=== PATIENT | female | born 1940 | race Caucasian/White ===

== ENCOUNTER 2016-08-14 08:59 | Outpatient (CLI) | payer MEDICARE | END 2016-08-14 09:00 | disposition home or self-care (01) | DX: I10 Essential (primary) hypertension (principal); R73.01 Impaired fasting glucose; E03.9 Hypothyroidism, unspecified ==

== ENCOUNTER 2016-08-30 10:45 | Outpatient (CLI) | payer MEDICARE | END 2016-08-30 10:46 | disposition home or self-care (01) | DX: Z12.31 Encounter for screening mammogram for malignant neoplasm of breast (principal) ==

== ENCOUNTER 2016-11-08 09:20 | Outpatient (CLI) | payer MEDICARE ==
--- NOTE | 2016-11-08 14:15 | MRI Report ---
EXAM: RIGHT KNEE MRI WITHOUT CONTRAST EXAM DATE: 11/08/2016 10:49 AM. CLINICAL HISTORY: SPRAIN/STRAIN, KNEE/LEG. COMPARISON: None. TECHNIQUE: Multiplanar, multisequence T1-weighted and fluid-sensitive sequences of the knee without c ontrast. Other: None. FINDINGS: Bones: No fractures or subluxations. Osteoarthritis with small osteophytes in the femoral condyles an d the lateral tibial plateau. Mild juxtaarticular reactive marrow edema in the lateral femoral condyl e and the lateral tibial plateau. No bone lesions. Articular Cartilage: Grade 3 cartilaginous degeneration with thinning and irregular surface in the la teral femoral condyle and the lateral tibial plateau associated with joint space narrowing. Medial Meniscus: The medial meniscus is intact. Lateral Meniscus: An extensive horizontal tear in the lateral meniscus involving the anterior horn, b ross and most of the posterior horn. Cruciate Ligaments: The anterior and posterior cruciate ligaments are intact. Collateral Ligaments: The medial collateral and lateral collateral ligamentous structures are intact. Tendons: The quadriceps, patellar, semimembranosus, and popliteus tendons are unremarkable. Musculature: Mild muscular strain with mild edema into distal part of the vastus lateralis. Mild musc ular fatty atrophy. Other: Mild effusion. No popliteal cyst. No loose bodies. The medial and lateral retinacula, patello femoral ligaments and iliotibial band are intact. No bursitis. The subcutaneous tissues and fat pads are unremarkable. IMPRESSION: 1. An extensive horizontal tear in the lateral meniscus involving the anterior horn, body and most of the posterior horn. 2. Grade 3 cartilaginous degeneration with thinning and irregular surface in the lateral femoral cond yle and the lateral tibial plateau associated with joint space narrowing associated with mild juxtaar ticular reactive marrow edema. 3. Mild muscular strain with mild edema into distal part of the vastus lateralis. 4. Mild effusion. No hemarthrosis or loose body. [facility] MUSCULOSKELET[facility] SECTION Referring Provider Line: [phone] SITE ID: [id number]
== END 2016-11-08 09:21 | disposition home or self-care (01) ==
LOC: DI 09:20
PROVIDERS: ATTEND Family Medicine
DX: S83.281A Other tear of lateral meniscus, current injury, right knee, initial encounter (principal); M23.91 Unspecified internal derangement of right knee; M25.461 Effusion, right knee; S86.811A Strain of other muscle(s) and tendon(s) at lower leg level, right leg, initial encounter

== ENCOUNTER 2017-09-05 09:00 | Outpatient (CLI) | payer MEDICARE ==
--- NOTE | 2017-09-06 17:46 | Mammography Report ---
DIGITAL SCREENING MAMMOGRAM: 09/05/2017 CLINICAL INDICATION: A 77-year-old for screening. TECHNIQUE: Routine CC and MLO projections were obtained of the breasts. COMPARISON: 08/2016, 08/2015, 09/2013, 08/2012, 07/2011, 06/2010, 06/2009. FINDINGS: The breasts demonstrate scattered fibroglandular densities bilaterally. No suspicious masses, clustered microcalcifications, or regions of architectural distortion are identified. IMPRESSION: NEGATIVE EXAMINATION. RECOMMENDATION: Routine annual screening unless otherwise clinically indicated. BIRADS category 1-negative. STANDARD QUALIFYING STATEMENTS 1. This examination was reviewed with the aid of Computed-Aided Detection (CAD). 2. A negative or benign imaging report should not delay biopsy if clinically suspicious findings are present. Consider surgical consultation if warranted. More than 5% of cancers are not identified by imaging. 3. Dense breasts may obscure an underlying neoplasm. cc: DANNY DUCKWORTH TD: 09/06/2017 12:58 cc: DANNY DUCKWORTH
== END 2017-09-05 09:01 | disposition home or self-care (01) ==
LOC: DI.N 09:00
PROVIDERS: ATTEND Family Medicine
DX: Z12.31 Encounter for screening mammogram for malignant neoplasm of breast (principal)
CPT/HCPCS: 77067

== ENCOUNTER 2017-12-30 08:00 | Outpatient (CLI) | payer MEDICARE ==
[2017-12-30 19:04] LABS: BASOPHILS % (AUTO) 0.7 %; EOSINOPHILS # (AUTO) 0.1 10^3/uL (0.0-0.7); EOSINOPHILS % (AUTO) 2.1 %; HGB - HEMOGLOBIN 14.1 g/dL (12.0-16.0); LYMPHOCYTES # (AUTO) 1.2 10^3/uL (1.5-3.5); LYMPHOCYTES % (AUTO) 16.2 %; MEAN CORPUSCULAR HEMOGLOBIN 31.7 pg (27.0-31.0); MEAN CORPUSCULAR HGB CONC 32.9 g/dL (32.0-36.0); MEAN CORPUSCULAR VOLUME 96.5 fL (81.0-99.0); MEAN PLATELET VOLUME 8.4 fL (7.9-10.8); MONOCYTES # (AUTO) 0.4 10^3/uL (0.0-1.0); MONOCYTES % (AUTO) 5.2 %; NEUTROPHILS # (AUTO) 5.5 10^3/uL (1.5-6.6); NEUTROPHILS % (AUTO) 75.8 %; PLT - PLATELET COUNT 250 10^3/uL (130-450); RED BLOOD COUNT 4.43 10^6/uL (4.20-5.40); RED CELL DISTRIBUTION WIDTH 13.6 % (12.0-15.0); WHITE BLOOD COUNT 7.3 x10^3/uL (4.8-10.8)
[2017-12-30 19:27] LABS: ALBUMIN 4.1 g/dL (3.2-5.5); ALBUMIN/GLOBULIN RATIO 1.4 (1.0-2.2); ALKALINE PHOSPHATASE 113 IU/L (42-121); ALT ALANINE AMINOTRANSFERASE 13 IU/L (10-60); AST ASPARTATE AMINOTRANSFERASE 21 IU/L (10-42); BILIRUBIN,TOTAL 0.3 mg/dL (0.2-1.0); BUN - BLOOD UREA NITROGEN 10 mg/dL (6-20); CALCIUM 10.1 mg/dL (8.5-10.3); CARBON DIOXIDE - CO2 30 mmol/L (21-32); CHLORIDE 105 mmol/L (101-111); CHOL/HDL RATIO 2.5 (<4.4); CHOLESTEROL 159 mg/dL; CREATININE 0.7 mg/dL (0.4-1.0); GFR - MDRD 81 (>89); GLUCOSE 88 mg/dL (70-100); HDL CHOLESTEROL 64 mg/dL; LDL CHOLESTEROL,CALCULATED 79 mg/dL; LDL/HDL RATIO 1.2 (<4.4); SODIUM 141 mmol/L (135-145); VLDL CHOLESTEROL 16 mg/dL
[2017-12-30 20:31] LABS: HB2 TOTAL 14.7 g/dL; HEMOGLOBIN A1C 0.57 g/dL; HEMOGLOBIN A1C % 5.7 % (4.6-6.2)
== END 2017-12-30 08:01 | disposition home or self-care (01) ==
LOC: LAB.WCP 08:00
PROVIDERS: ATTEND Family Medicine
DX: I10 Essential (primary) hypertension (principal); R73.01 Impaired fasting glucose; E03.9 Hypothyroidism, unspecified
CPT/HCPCS: 36415; 80053; 80061; 83036; 83721; 84443; 85025

== ENCOUNTER 2018-04-21 08:00 | Outpatient (CLI) | payer MEDICARE | END 2018-04-21 23:59 | disposition home or self-care (01) | LOC: LAB.WCP 08:00 | PROVIDERS: ATTEND Orthopaedic Surgery | DX: Z01.812 Encounter for preprocedural laboratory examination (principal); M17.11 Unilateral primary osteoarthritis, right knee | CPT/HCPCS: 36415; 86850; 86900; 86901 ==

== ENCOUNTER 2018-04-22 05:53 | Inpatient (IN) | payer MEDICARE ==
[2018-04-22] MEDS ORDERED: ceFAZolin 2 GM/50 ML 2 GM/50 ML BAG IV ONE (06:26)
[2018-04-22] MEDS ORDERED: LACTATED RINGERS 1,000 ML IV ONE ×2 (07:00→10:00)
--- NOTE | 2018-04-22 07:03 | ANESTHESIA ---
Pre-Anesthesia VS, & Labs - Diagnosis right knee osteoarthritis - Procedure right knee arthroplasty Vital Signs: Temp Pulse Resp BP Pulse Ox 36.8 C 84 18 159/85 H 96 04/22/18 06:30 04/22/18 06:30 04/22/18 06:30 04/22/18 06:30 04/22/18 06:30 Height 5 ft 1 in Weight (kg) 86.4 kg - NPO >8 hours - Is Patient ?: No Home Medications and Allergies Home Medications: Ambulatory Orders Acetaminophen/Cod 300/30 [Tylenol #3] 1 each PO .Q6-8HR 04/17/18 Celecoxib [Celebrex] 200 mg PO DAILY 04/17/18 Ca/D3/Mag#11/Zinc/Beam Sealer/Bill/Bor [Caltrate 600+D Plus Tablet] 1 tab PO DAILY Docusate Sodium [Stool Softener] 1 tab PO DAILY 09/19/15 Levothyroxine [Synthroid] 100 mcg PO DAILY 09/19/15 Lisinopril [Prinivil] 20 mg PO DAILY 09/19/15 Omeprazole [PriLOSEC] 20 mg PO DAILY 09/19/15 Acetaminophen/Cod 300/30 [Tylenol #3] 1 each PO .Q6-8HR 04/17/18 Celecoxib [Celebrex] 200 mg PO DAILY 04/17/18 Allergies/Adverse Reactions: Allergies Allergy/AdvReac Type Severity Reaction Status Date / Time No Known Drug Allergies Allergy Verified 04/17/18 14:36 Anes History & Medical History - Anesthetic History Anesthesia Complications: reports: No previous complications - Medical History Cardiovascular: reports: Hypertension Pulmonary: reports: None Gastrointestinal: reports: GERD (controlled with medication), Ulcers Urinary: reports: None Musculoskeletal: reports: Osteoarthritis, Chronic back pain Endocrine/Autoimmune: reports: HyPOthyroidism Skin: reports: None - Surgical History General: Colonoscopy, EGD Eyes Ears Nose Throat (EENT): Tonsil/Adenoidectomy Gynecologic: Tubal ligation, Hysterectomy Exam General: Alert, Oriented x3, Cooperative, No acute distress Dental: WNL Mouth Openin Fingerbreadth Neck Mobility: Normal Mallampati classification: II Thyromental Distance: 4-6 cm Respiratory: Lungs clear, Normal breath sounds, No respiratory distress, No accessory muscle use Cardiovascular: Regular rate, Normal S1, Normal S2, No murmurs Mental/Cognitive Status: Alert/Oriented X3, Normal for patient Plan Anesthesia Type: Spinal Consent for Procedure(s) Verified and Reviewed: Yes Code Status: Attempt Resuscitation ASA classification: 2-Mild systemic disease Is this case an emergency?: No
[2018-04-22] MEDS ORDERED: SODIUM CHLORIDE 0.9% 30 ML ONE (07:08)
[2018-04-22] MEDS ORDERED: BUPIVACAINE 0.5% PF 30 ML VIAL ONE (07:08)
[2018-04-22] MEDS ORDERED: EPINEPHrine 1 MG/ML AMP ONE (07:08)
[2018-04-22] MEDS ORDERED: ROPIVACAINE 0.5% PF 20 ML AMPULE ONE (07:08)
[2018-04-22] MEDS ORDERED: MORPHINE PF 5 MG/10 ML AMP SUBQ ONE (08:37)
[2018-04-22] MEDS ORDERED: KETOROLAC 15 MG/ML VIAL IVP ONE (08:37)
[2018-04-22] MEDS ORDERED: BUPIVACAINE 0.5% PF 30 ML VIAL SUBQ ONE ×2 (08:38)
[2018-04-22] MEDS ORDERED: EPINEPHrine 1 MG/ML AMP IVP ONE (08:38)
[2018-04-22] MEDS ORDERED: ROPIVACAINE 0.2% PF 20 ML AMPULE SUBQ ONE (08:39)
[2018-04-22] MEDS ORDERED: PROPOFOL 200 MG/20 ML VIAL IVP ONE (09:37)
[2018-04-22] MEDS ORDERED: fentaNYL 100 MCG/2 ML VIAL IVP ONE (09:37)
[2018-04-22] MEDS ORDERED: ePHEDrine 50 MG/ML AMP IVP ONE (09:37)
[2018-04-22] MEDS ORDERED: ONDANSETRON 4 MG/2 ML VIAL IVP ONE (09:37)
[2018-04-22] MEDS ORDERED: ONDANSETRON 4 MG/2 ML VIAL IVP PRN (09:50)
[2018-04-22] MEDS ORDERED: SODIUM CHLORIDE FLUSH 0.9% 10 ML SYRINGE IVP PRN (09:50)
[2018-04-22] MEDS ORDERED: PROCHLORPERAZINE 10 MG/2 ML VIAL IVP PRN (09:50)
[2018-04-22] MEDS ORDERED: ACETAMINOPHEN 325 MG TABLET PO PRN (09:50)
[2018-04-22] MEDS ORDERED: ACETAMINOPHEN 1,000 MG/100 ML 100 ML IV PRN (09:50)
[2018-04-22] MEDS ORDERED: HYDROmorphone 0.5 MG/0.5 ML SYRINGE IVP PRN (09:50)
[2018-04-22] MEDS: fentaNYL 100 MCG/2 ML VIAL ONE ×4 (09:54→10:16)
--- NOTE | 2018-04-22 09:59 | OPERATIVE REPORT ---
Operative Report - General Admit Date: 04/22/18 Procedure Date: 04/22/18 Planned Procedure: right total knee arthroplasty Pre-Op Diagnosis: DJD right knee Procedure Performed: right total knee arthroplasty Post Op Diagnosis: same - Procedure Note Primary Surgeon: pamela Anesthesia Provider: fausto Anesthesia Technique: Combo spinal/epidural Estimated Blood Loss (mL): 20
[2018-04-22] MEDS: HYDROmorphone 1 MG/ML CARPUJECT ONE ×2 (10:10→10:15)
--- NOTE | 2018-04-22 10:35 | XRAY Report ---
Reason: post op Procedure Date: 04/22/2018 Accession Number: [id number] / [id number] Procedure: XR - Knee 2 View RT CPT Code: FULL RESULT: EXAM: RIGHT KNEE RADIOGRAPHY EXAM DATE: 04/22/2018 10:24 AM. CLINICAL HISTORY: Postop. COMPARISON: None. TECHNIQUE: 2 views. FINDINGS: Bones and Joints: No fractures or bone lesion. A 3 component right knee arthroplasty has been performed. There is expected alignment of components. No unexpected periprosthetic lucency or other evidence of loosening. Soft Tissues: No knee effusion. No soft tissue swelling. IMPRESSION: Expected appearance of knee arthroplasty. [facility]
[2018-04-22] MEDS: HYDROcod/ACETAM 5/325 MG TABLET PO PRN ×3 (11:18→22:21)
[2018-04-22] MEDS: POLYETHYLENE GLYCOL 3350 17 GM PACKET PO SCH (11:19)
[2018-04-22] MEDS: SODIUM CHLORIDE 0.45% 1,000 ML IV SCH ×2 (11:20→22:31)
--- NOTE | 2018-04-22 15:17 | OPERATIVE REPORT ---
DATE OF SERVICE: 04/22/2018 Physician: Seth Howell MD PREOPERATIVE DIAGNOSIS: Right knee tricompartmental arthritis. POSTOPERATIVE DIAGNOSIS: OPERATIVE PROCEDURE: Right total knee replacement arthroplasty. OPERATING SURGEON: Seth Howell. ANESTHESIA: General and spinal by Stefano. INDICATIONS FOR SURGERY: Catherine is a 77-year-old female with end-stage arthritis of her right knee, who has failed nonoperative treatment over an extended period of time and has failed to see improvement or satisfactory gains and ultimately now desires total knee arthroplasty. FINDINGS AT SURGERY: The patient's knee was shown to have enlargement and effusion. She had prominent spurring around the periphery of her knee. She had tearing of her lateral meniscus, and the areas devoid of cartilage were her tibial surfaces predominantly, with the patella fairly well preserved. Her bone density soft. DESCRIPTION OF OPERATIVE PROCEDURE: The patient was taken to the operating room and was given a spinal anesthetic and then a deep sedation MAC anesthetic in a supine position, which she tolerated well. A tourniquet was placed on her thigh and her leg, and the entire limb was sterilely prepped and draped in standard fashion. The patient's incision plan was marked with a marking pen. Surgical timeout was held. Tourniquet inflated. Surgical timeout was undertaken, after which the limb was in an extended position. A surgical approach was made, incising through skin and subcutaneous tissue, dissecting down to the fascial layer of the knee with a medial parapatellar incision made and some excision of fat pad made in order to expose the knee joint with ACL excised knee and two horns of the meniscus excised. The knee was able to be flexed. A lateral release was performed of the patella, and, in flexion, a central drill hole made in the femur for placement of the IM foreign and the distal femoral cutting block. These were slid down onto the femur and the distal femoral cut was made, taking an extra +2 cut. Following this, the distal cutting block was applied, sizing the femur and a size 6 was chosen and appropriate 4-in-1 block was applied and those cuts made. The PCL was excised, as well as the posterior remnants of meniscus. Tibia was subluxated forward with the external tibial block applied in appropriate rotation, slope, and depth. The cut was made and the tibial resected surface removed. The tibia sized to a size C-D, and appropriate block was tacked in place and a trial poly insert was obtained. The most appropriate fitting was 13 mm. Following this, it was determined that with soft bone a stemmed implant would be applied, so the central tibial drilling was performed to accommodate the stem and the proximal fin broach was applied, followed by the trial component,and once again, components trialed for size 13 mm was the appropriate medial congruent poly. The knee was extended and the patella cut down from 23 mm to 15 in order to reinsert 8 mm poly, and this was a size 29 mm medialized patellar component, and it tracked well without pump pressure and was central. All trial components were removed and all implanted surfaces were washed thoroughly and dried, and the posterior capsule and resected tissues were infiltrated with a combination injection approximately 30 mL infiltrated through these tissues, and this was done while the components were opened and cement mixed after which sequential cementing was done of the tibial implant, followed by insertion of poly and then cementing the femoral implant and removing excess cement and extending the knee and finally inserting and holding the patella in place as excess cement was removed around it. Once the cement was hardened, the knee was flushed thoroughly, checked for any aberrant cement, and bleeding was controlled with cautery. Closure was undertaken with FiberWire closure of the medial retinaculum which was very meticulous closure with minimal bleeding. The superficial layers were closed with interrupted Vicryl, and finally the skin was closed with Monocryl in a running fashion. A sterile dressing was applied. The patient was then taken to the recovery room in stable condition. ESTIMATED BLOOD LOSS: Minimal, about 40 mL COMPLICATIONS: None. COUNTS: Sponge and needle counts correct. IMPLANTS: Joshua/[employer] Personal TKA, size 6 femoral component, C tibia with 30mm stem extension, size 29mm patella TD: 04/22/2018 14:38 [email or web address]
[2018-04-22] MEDS: ceFAZolin 2 GM/50 ML 2 GM/50 ML BAG IV SCH ×2 (15:27→21:43)
[2018-04-22] MEDS: SODIUM CHLORIDE FLUSH 0.9% 10 ML SYRINGE IVP SCH (16:06)
[2018-04-23] MEDS: SODIUM CHLORIDE FLUSH 0.9% 10 ML SYRINGE IVP SCH ×3 (00:21→15:47)
[2018-04-23] MEDS: HYDROcod/ACETAM 5/325 MG TABLET PO PRN ×4 (04:55→19:43)
[2018-04-23 06:04] LABS: CALCIUM 8.7 mg/dL (8.5-10.3); CREATININE 0.7 mg/dL (0.4-1.0)
[2018-04-23 06:12] LABS: HGB - HEMOGLOBIN 11.1 g/dL (12.0-16.0)
--- NOTE | 2018-04-23 07:56 | PROVIDER PROGRESS NOTE ---
Subjective - General Admit Date: 04/22/18 Procedure Date: 04/22/18 Post Op Days: 1 Procedure Performed: right TKA - Review of Systems Wound/Incisions: positive: Healing well Musculoskeletal: positive: Joint pain, Joint swelling Psychiatric: positive: No symptoms Objective - Patient Data Reviewed Vital Signs: Yes Vital Signs: Vital Signs x48h Temp Pulse Resp BP Pulse Ox 04/23/18 05:05 36.7 C 71 16 135/78 H 96 Weight: Weight 04/21/18 04/22/18 04/23/18 23:59 23:59 23:59 Weight (kg) 86.4 kg Intake & Output: Intake and Output Totals x24h 04/21/18 04/22/18 04/23/18 23:59 23:59 23:59 Intake Total 3020 350 Output Total 695 300 Balance 2325 50 - Lab Results Lab Results: 04/23/18 05:35 04/23/18 05:35 Other Lab Results: Lab Results x24hrs 04/23/18 04/23/18 Range/Units 05:35 05:35 Hgb 11.1 L (12.0-16.0) g/dL Hct 33.4 L (37.0-47.0) % Sodium 136 (135-145) mmol/L Potassium 4.3 (3.5-5.0) mmol/L Chloride 101 (101-111) mmol/L Carbon Dioxide 27 (21-32) mmol/L Anion Gap 8.0 (6-13) BUN 10 (6-20) mg/dL Creatinine 0.7 (0.4-1.0) mg/dL Estimated GFR (MDRD) 81 L (>89) Glucose 123 H (70-100) mg/dL Calcium 8.7 (8.5-10.3) mg/dL - Imaging Results Radiology Imaging: positive: EMP read indepedently - Current Medications Current Medications: Current Medications Generic Name Dose Route Start Last Admin Trade Name Freq PRN Reason Stop Dose Admin Hydrocodone Bitart/Acetaminophen 1 tab 04/22/18 09:50 04/23/18 04:55 [place] 5/325 PO 1 tab Q4HR PRN Administration PAIN Sodium Chloride 1,000 mls @ 100 mls/hr 04/22/18 10:00 04/22/18 22:31 Normal Saline 0.45% IV 100 mls/hr .Q10H ABBY Administration Polyethylene Glycol 17 gm 04/22/18 12:00 04/22/18 11:19 Miralax PO 17 gm DAILY ABBY Administration Sodium Chloride 10 ml 04/22/18 17:00 04/23/18 00:21 Normal Saline Flush 0.9% IVP Not Given 0100,0900,1700 ABBY - Physical Exam Wound/Incisions: positive: Dressing dry and intact General Appearance: positive: Alert Extremities: positive: Joint swelling Neurologic/Psychiatric: positive: Oriented x3, CN's nml (2-12), Motor nml, Sensation nml Impression/Plan - Problem List Problem List: POD #1 pt is advancing but having increased pain today as expected. will follow Hct. PT to begin today. dressing change tomorrow
[2018-04-23] MEDS: DOCUSATE SODIUM 100 MG CAPSULE PO SCH (08:15)
[2018-04-23] MEDS: CELECOXIB 100 MG CAPSULE PO SCH (08:15)
[2018-04-23] MEDS: SENNA 8.6 MG TABLET PO SCH ×3 (08:15→17:01)
[2018-04-23] MEDS: LEVOTHYROXINE 100 MCG TABLET PO SCH (08:16)
[2018-04-23] MEDS: CHOLECALCIFEROL 400 UNIT TABLET PO SCH (08:16)
[2018-04-23] MEDS: POLYETHYLENE GLYCOL 3350 17 GM PACKET PO SCH (08:16)
[2018-04-23] MEDS: LISINOPRIL 20 MG TABLET PO SCH (08:16)
[2018-04-23] MEDS: PANTOPRAZOLE 40 MG TABLET PO SCH (08:16)
[2018-04-23] MEDS: CALCIUM CARB (OYSTER SHELL) 500 MG TABLET PO SCH (08:17)
[2018-04-23] MEDS: ASPIRIN EC 325 MG TABLET PO SCH (10:42)
[2018-04-24] MEDS: SODIUM CHLORIDE FLUSH 0.9% 10 ML SYRINGE IVP SCH ×3 (02:13→20:46)
[2018-04-24] MEDS: SENNA 8.6 MG TABLET PO SCH (02:13)
[2018-04-24] MEDS: HYDROcod/ACETAM 5/325 MG TABLET PO PRN ×4 (04:37→21:25)
[2018-04-24 05:26] LABS: HGB - HEMOGLOBIN 10.3 g/dL (12.0-16.0); MEAN CORPUSCULAR HEMOGLOBIN 32.5 pg (27.0-31.0); MEAN CORPUSCULAR HGB CONC 33.4 g/dL (32.0-36.0); MEAN CORPUSCULAR VOLUME 97.3 fL (81.0-99.0); MEAN PLATELET VOLUME 7.3 fL (7.9-10.8); RED BLOOD COUNT 3.18 10^6/uL (4.20-5.40); RED CELL DISTRIBUTION WIDTH 14.1 % (12.0-15.0); WHITE BLOOD COUNT 6.9 x10^3/uL (4.8-10.8)
--- NOTE | 2018-04-24 08:37 | PROVIDER PROGRESS NOTE ---
Subjective - General Admit Date: 04/22/18 Procedure Date: 04/22/18 Post Op Days: 2 Procedure Performed: right TKA - Review of Systems Wound/Incisions: positive: Healing well General: positive: Weakness Musculoskeletal: positive: Joint pain, Joint swelling Psychiatric: positive: No symptoms Objective - Patient Data Reviewed Vital Signs: Yes Vital Signs: Vital Signs x48h Temp Pulse Resp BP Pulse Ox 04/24/18 07:53 36.5 C 83 20 139/55 H 98 Weight: Weight 04/22/18 04/23/18 04/24/18 23:59 23:59 23:59 Weight (kg) 86.4 kg Intake & Output: Intake and Output Totals x24h 04/22/18 04/23/18 04/24/18 23:59 23:59 23:59 Intake Total 3020 2120 560 Output Total 695 2100 350 Balance 2325 20 210 - Lab Results Lab Results: 04/24/18 05:05 04/23/18 05:35 Other Lab Results: Lab Results x24hrs 04/24/18 Range/Units 05:05 WBC 6.9 (4.8-10.8) x10^3/uL RBC 3.18 L (4.20-5.40) 10^6/uL Hgb 10.3 L (12.0-16.0) g/dL Hct 31.0 L (37.0-47.0) % MCV 97.3 (81.0-99.0) fL MCH 32.5 H (27.0-31.0) pg MCHC 33.4 (32.0-36.0) g/dL RDW 14.1 (12.0-15.0) % Plt Count 207 (130-450) 10^3/uL MPV 7.3 L (7.9-10.8) fL - Current Medications Current Medications: Current Medications Generic Name Dose Route Start Last Admin Trade Name Freq PRN Reason Stop Dose Admin Hydrocodone Bitart/Acetaminophen 1 tab 04/22/18 09:50 04/24/18 04:37 [place] 5/325 PO 1 tab Q4HR PRN Administration PAIN Aspirin 325 mg 04/23/18 10:00 04/23/18 10:42 Ecotrin PO 325 mg DAILY ABBY Administration Calcium Carbonate/Glycine 500 mg 04/23/18 09:00 04/23/18 08:17 [place]ys[place]-500 PO 500 mg DAILY ABBY Administration Celecoxib 200 mg 04/23/18 09:00 04/23/18 08:15 Celebrex PO 200 mg DAILY ABBY Administration Cholecalciferol 200 unit 04/23/18 09:00 04/23/18 08:16 Vitamin D3 PO 200 unit DAILY ABBY Administration Docusate Sodium 100 mg 04/23/18 09:00 04/23/18 08:15 Colace 100mg Capsule PO 100 mg DAILY ABBY Administration Levothyroxine Sodium 100 mcg 04/23/18 09:00 04/23/18 08:16 Synthroid PO 100 mcg DAILY ABBY Administration Lisinopril 20 mg 04/23/18 09:00 04/23/18 08:16 Zestril PO 20 mg DAILY ABBY Administration Pantoprazole Sodium 40 mg 04/23/18 09:00 04/23/18 08:16 Protonix PO 40 mg DAILY ABBY Administration Polyethylene Glycol 17 gm 04/22/18 12:00 04/23/18 08:16 Miralax PO 17 gm DAILY ABBY Administration Sodium Chloride 10 ml 04/22/18 17:00 04/24/18 02:13 Normal Saline Flush 0.9% IVP Not Given 0100,0900,1700 ABBY - Physical Exam Wound/Incisions: positive: Healing well, No drainage General Appearance: positive: No acute distress Skin: positive: No rash, Warm Extremities: positive: Joint swelling Neurologic/Psychiatric: positive: Oriented x3, CN's nml (2-12), Motor nml, Sens ation nml, Mood/affect nml Impression/Plan - Problem List Problem List: POD #2 Pt is slowly progressing with physical therapy. Dressing was changed today. and PT to continue. Poss. plan for d/c to home in AM
[2018-04-24] MEDS: POLYETHYLENE GLYCOL 3350 17 GM PACKET PO SCH (08:40)
[2018-04-24] MEDS: ASPIRIN EC 325 MG TABLET PO SCH (08:41)
[2018-04-24] MEDS: PANTOPRAZOLE 40 MG TABLET PO SCH (08:41)
[2018-04-24] MEDS: DOCUSATE SODIUM 100 MG CAPSULE PO SCH (08:41)
[2018-04-24] MEDS: LISINOPRIL 20 MG TABLET PO SCH (08:41)
[2018-04-24] MEDS: CHOLECALCIFEROL 400 UNIT TABLET PO SCH (08:41)
[2018-04-24] MEDS: LEVOTHYROXINE 100 MCG TABLET PO SCH (08:41)
[2018-04-24] MEDS: CALCIUM CARB (OYSTER SHELL) 500 MG TABLET PO SCH (08:41)
[2018-04-24] MEDS: CELECOXIB 100 MG CAPSULE PO SCH (08:41)
[2018-04-25] MEDS: SODIUM CHLORIDE FLUSH 0.9% 10 ML SYRINGE IVP SCH ×2 (07:30→08:06)
[2018-04-25 07:57] VITALS: BP 146/67
[2018-04-25] MEDS: CHOLECALCIFEROL 400 UNIT TABLET PO SCH (08:06)
[2018-04-25] MEDS: HYDROcod/ACETAM 5/325 MG TABLET PO PRN (08:06)
[2018-04-25] MEDS: LISINOPRIL 20 MG TABLET PO SCH (08:07)
[2018-04-25] MEDS: DOCUSATE SODIUM 100 MG CAPSULE PO SCH (08:07)
[2018-04-25] MEDS: ASPIRIN EC 325 MG TABLET PO SCH (08:07)
[2018-04-25] MEDS: CELECOXIB 100 MG CAPSULE PO SCH (08:07)
[2018-04-25] MEDS: LEVOTHYROXINE 100 MCG TABLET PO SCH (08:07)
[2018-04-25] MEDS: PANTOPRAZOLE 40 MG TABLET PO SCH (08:07)
[2018-04-25] MEDS: CALCIUM CARB (OYSTER SHELL) 500 MG TABLET PO SCH (08:07)
[2018-04-25] MEDS: POLYETHYLENE GLYCOL 3350 17 GM PACKET PO SCH (08:10)
--- NOTE | 2018-04-25 09:39 | Discharge Plan ---
Discharge Plan Disposition: 01 Home, Self Care Condition: Good Diet: Regular Activity Restrictions: pt to do rom of knee, ankle and foot. Shower Restrictions: Yes (cover knee dressing) Driving Restrictions: Yes (no drive) Assistance Devices: Walker Weight Bearing: Full Weight Additional Instructions or Follow Up instructions: dr. Howell in clinic Weds next week. No Smoking: If you smoke, Please STOP! Call for help. Follow-up with: Purnima Warren DO [Primary Care Provider] - Seth Howell MD [Provider Admit Priv/Credential] -
--- NOTE | 2018-04-25 09:42 | PROVIDER PROGRESS NOTE ---
Subjective - General Admit Date: 04/22/18 Procedure Date: 04/22/18 Post Op Days: 3 Procedure Performed: right TKA - Review of Systems Wound/Incisions: positive: Healing well, No drainage Musculoskeletal: positive: Joint pain, Joint swelling Psychiatric: positive: No symptoms Objective - Patient Data Reviewed Vital Signs: Yes Vital Signs: Vital Signs x48h Temp Pulse Resp BP Pulse Ox 04/25/18 07:56 36.5 C 74 20 146/67 H 96 Intake & Output: Intake and Output Totals x24h 04/23/18 04/24/18 04/25/18 23:59 23:59 23:59 Intake Total 2120 1535 390 Output Total 2100 1325 Balance 20 210 390 - Lab Results Lab Results: 04/24/18 05:05 04/23/18 05:35 - Current Medications Current Medications: Current Medications Generic Name Dose Route Start Last Admin Trade Name Freq PRN Reason Stop Dose Admin Hydrocodone Bitart/Acetaminophen 1 tab 04/22/18 09:50 04/25/18 08:06 [place] 5/325 PO 1 tab Q4HR PRN Administration PAIN Aspirin 325 mg 04/23/18 10:00 04/25/18 08:07 Ecotrin PO 325 mg DAILY ABBY Administration Calcium Carbonate/Glycine 500 mg 04/23/18 09:00 04/25/18 08:07 Oys[place]-500 PO 500 mg DAILY ABBY Administration Celecoxib 200 mg 04/23/18 09:00 04/25/18 08:07 Celebrex PO 200 mg DAILY ABBY Administration Cholecalciferol 200 unit 04/23/18 09:00 04/25/18 08:06 Vitamin D3 PO 200 unit DAILY ABBY Administration Docusate Sodium 100 mg 04/23/18 09:00 04/25/18 08:07 Colace 100mg Capsule PO 100 mg DAILY ABBY Administration Levothyroxine Sodium 100 mcg 04/23/18 09:00 04/25/18 08:07 Synthroid PO 100 mcg DAILY ABBY Administration Lisinopril 20 mg 04/23/18 09:00 04/25/18 08:07 Zestril PO 20 mg DAILY ABBY Administration Pantoprazole Sodium 40 mg 04/23/18 09:00 04/25/18 08:07 Protonix PO 40 mg DAILY ABBY Administration Polyethylene Glycol 17 gm 04/22/18 12:00 04/25/18 08:10 Miralax PO Not Given DAILY [facility] Sodium Chloride 10 ml 04/22/18 17:00 04/25/18 08:06 Normal Saline Flush 0.9% IVP 10 ml 0100,0900,1700 [facility] Administration - Physical Exam Wound/Incisions: positive: Healing well Extremities: positive: Joint swelling Neurologic/Psychiatric: positive: Oriented x3, CN's nml (2-12), Motor nml, Sensation nml, Mood/affect nml Impression/Plan - Problem List Problem List: POD #3 pt is doing well and ready for d/c Disccussed post-op rehab plan and rtc on next wk.
== END 2018-04-25 10:27 | disposition home or self-care (01) | DRG 470 ==
LOC: MS2 05:53
PROVIDERS: ADMIT Orthopaedic Surgery; ATTEND Orthopaedic Surgery
PROC: 0SRC0J9 Replacement of Right Knee Joint with Synthetic Substitute, Cemented, Open Approach (ICD-10-PCS; principal; 2018-04-22 07:30)
DX: M17.11 Unilateral primary osteoarthritis, right knee (principal); K21.9 Gastro-esophageal reflux disease without esophagitis; R03.0 Elevated blood-pressure reading, without diagnosis of hypertension; Z90.710 Acquired absence of both cervix and uterus; M25.461 Effusion, right knee; R26.9 Unspecified abnormalities of gait and mobility
CPT/HCPCS: 36415; 80048; 85014; 85018; 85027

== ENCOUNTER 2019-03-26 06:18 | Day surgery (SDC) | payer MEDICARE ==
[2019-03-26] MEDS ORDERED: KETOROLAC 0.45% OPHTH DROPS ONE (06:25)
[2019-03-26] MEDS ORDERED: LACTATED RINGERS 500 ML IV ONE (06:25)
[2019-03-26] MEDS ORDERED: PHENYLEPHRINE 2.5% OPHTH 2 ML DROPS ONE (06:26)
[2019-03-26] MEDS ORDERED: CYCLOPENTOLATE 1% OPHTH DROPS 2 ML ONE (06:26)
[2019-03-26] MEDS ORDERED: PROPARACAINE 0.5% OPHTH DROPS 15 ML ONE (06:26)
[2019-03-26] MEDS ORDERED: PHENYLEPHRINE 2.5% OPHTH 2 ML DROPS RIGHTEYE ONE (06:40)
[2019-03-26] MEDS ORDERED: KETOROLAC 0.45% OPHTH DROPS RIGHTEYE ONE (06:40)
[2019-03-26] MEDS ORDERED: CYCLOPENTOLATE 1% OPHTH DROPS 2 ML RIGHTEYE ONE (06:40)
[2019-03-26] MEDS ORDERED: PROPARACAINE 0.5% OPHTH DROPS 15 ML RIGHTEYE ONE (06:40)
--- NOTE | 2019-03-26 07:09 | ANESTHESIA ---
Pre-Anesthesia VS, & Labs - Diagnosis right eye cataract - Procedure right eye cataract extraction Vital Signs: Temp Pulse Resp BP Pulse Ox 36.2 C L 95 15 161/86 H 98 03/26/19 06:43 03/26/19 06:43 03/26/19 06:43 03/26/19 06:43 03/26/19 06:43 Height 5 ft 1 in Weight (kg) 88 kg - Is Patient ?: No Home Medications and Allergies Chandu/D3/Mag11/Zinc/Cylinder Checker/Bill/Bor [Caltrate 600+D Plus Tablet] 1 tab PO DAILY 09/19/15 Docusate Sodium [Stool Softener] 100 mg PO DAILY 09/19/15 Levothyroxine [Synthroid] 100 mcg PO DAILY 09/19/15 Lisinopril [Prinivil] 20 mg PO DAILY 09/19/15 Omeprazole [PriLOSEC] 20 mg PO DAILY 09/19/15 Celecoxib [Celebrex] 200 mg PO DAILY 04/17/18 Cholecalciferol (Vitamin D3) [Vitamin D3] 2,000 unit PO DAILY 04/22/18 Allergies/Adverse Reactions: Allergies Allergy/AdvReac Type Severity Reaction Status Date / Time No Known Drug Allergies Allergy Verified 04/17/18 14:36 Anes History & Medical History - Anesthetic History Anesthesia Complications: reports: No previous complications Family history of Anesthesia Complications: Denies Family history of Malignant Hyperthermia: Denies - Medical History Cardiovascular: reports: Hypertension Pulmonary: reports: None Gastrointestinal: reports: GERD, Ulcers Urinary: reports: None, Incontinence Neuro: reports: None Musculoskeletal: reports: Osteoarthritis, Chronic back pain Endocrine/Autoimmune: reports: HyPOthyroidism Blood Disorders: reports: None Skin: reports: None Smoking Status: Never smoker Psychosocial: reports: No issues indicated - Surgical History General: Colonoscopy, EGD Eyes Ears Nose Throat (EENT): Tonsil/Adenoidectomy Gynecologic: Tubal ligation, Hysterectomy Exam General: Alert, Oriented x3, Cooperative, No acute distress Dental: WNL Mouth Openin Fingerbreadth Neck Mobility: Normal Thyromental Distance: 4-6 cm Respiratory: Lungs clear, Normal breath sounds, No respiratory distress, No accessory muscle use Cardiovascular: Regular rate, Normal S1, Normal S2, No murmurs Abdomen: Normal bowel sounds, Soft, No tenderness, No hepatospenomegaly, No masses Extremities: No clubbing, No cyanosis, No edema, Normal pulses, No tenderness/swelling Neurological: Normal gait, Normal speech, Strength at 5/5 X4 ext, Normal tone, Sensation intact, Cranial nerves 3-12 NL, Reflexes 2+ Mental/Cognitive Status: Alert/Oriented X3, Normal for patient Cognitive Status: Within normal limits Plan Anesthesia Type: MAC Consent for Procedure(s) Verified and Reviewed: Yes Code Status: Attempt Resuscitation ASA classification: 2-Mild systemic disease Is this case an emergency?: No
--- NOTE | 2019-03-26 07:09 | ANESTHESIA ---
Pre-Anesthesia VS, & Labs - Diagnosis R nuclear sclerotic cataract, posterior synechiae - Procedure R extraction cataract w/IOL Vital Signs: Temp Pulse Resp BP Pulse Ox 36.2 C L 95 15 161/86 H 98 03/26/19 06:43 03/26/19 06:43 03/26/19 06:43 03/26/19 06:43 03/26/19 06:43 Height 5 ft 1 in Weight (kg) 88 kg - NPO >8 hours - Is Patient ?: No - Lab Results Lab results reviewed: Yes Home Medications and Allergies Chandu/D3/Mag11/Zinc/Rn Chemical Dependency/Bill/Bor [Caltrate 600+D Plus Tablet] 1 tab PO DAILY 09/19/15 Docusate Sodium [Stool Softener] 100 mg PO DAILY 09/19/15 Levothyroxine [Synthroid] 100 mcg PO DAILY 09/19/15 Lisinopril [Prinivil] 20 mg PO DAILY 09/19/15 Omeprazole [PriLOSEC] 20 mg PO DAILY 09/19/15 Celecoxib [Celebrex] 200 mg PO DAILY 04/17/18 Cholecalciferol (Vitamin D3) [Vitamin D3] 2,000 unit PO DAILY 04/22/18 Allergies/Adverse Reactions: Allergies Allergy/AdvReac Type Severity Reaction Status Date / Time No Known Drug Allergies Allergy Verified 04/17/18 14:36 Anes History & Medical History - Anesthetic History Anesthesia Complications: reports: No previous complications Family history of Anesthesia Complications: Denies Family history of Malignant Hyperthermia: Denies - Medical History Cardiovascular: reports: Hypertension Pulmonary: reports: None Gastrointestinal: reports: GERD, Ulcers Urinary: reports: None, Incontinence Musculoskeletal: reports: Osteoarthritis, Chronic back pain Endocrine/Autoimmune: reports: HyPOthyroidism Skin: reports: None - Surgical History General: Colonoscopy, EGD Eyes Ears Nose Throat (EENT): Tonsil/Adenoidectomy Gynecologic: Tubal ligation, Hysterectomy
[2019-03-26] MEDS ORDERED: TRIAMCIN/MOXIFLOX OPHTHALMIC 0.6 ML VIAL IO ONE ×2 (07:11→07:57)
[2019-03-26] MEDS ORDERED: VANCOMYCIN OPHTHALMI 8MG/0.8ML 8 MG/0.8 ML SYRINGE IO ONE ×2 (07:12→07:58)
[2019-03-26] MEDS ORDERED: BRIMONIDINE 0.2% OPHTH DROPS 5 ML ONE (07:12)
[2019-03-26] MEDS ORDERED: TIMOLOL 0.5% OPHTH DROPS ONE (07:12)
[2019-03-26] MEDS ORDERED: EPINEPHrine 1 MG/ML AMP IVP ONE (07:56)
[2019-03-26] MEDS ORDERED: CHONDR SULF/HYALURONATE SYRINGE IO ONE (07:56)
[2019-03-26] MEDS ORDERED: BRIMONIDINE 0.2% OPHTH DROPS 5 ML OPTH ONE (07:56)
[2019-03-26] MEDS ORDERED: BSS/LIDOCAINE/EPINEPHRINE 1 ML SYRINGE IO ONE (07:57)
[2019-03-26] MEDS ORDERED: TIMOLOL 0.5% OPHTH DROPS OPTH ONE (07:57)
[2019-03-26 08:15] VITALS: BP 155/66
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
== END 2019-03-26 06:19 | disposition home or self-care (01) ==
LOC: SDS 06:18
PROVIDERS: ATTEND Ophthalmology
PROC: 08RJ3JZ Replacement of Right Lens with Synthetic Substitute, Percutaneous Approach (ICD-10-PCS; principal; 2019-03-26 07:30)
DX: H25.11 Age-related nuclear cataract, right eye (principal); H21.541 Posterior synechiae (iris), right eye; I10 Essential (primary) hypertension; E05.00 Thyrotoxicosis with diffuse goiter without thyrotoxic crisis or storm
CPT/HCPCS: 66982; A9270; J3490; V2632

== ENCOUNTER 2019-10-01 08:00 | Outpatient (CLI) | payer MEDICARE ==
[2019-10-01 11:51] LABS: BASOPHILS % (AUTO) 0.6 %; EOSINOPHILS # (AUTO) 0.1 10^3/uL (0.0-0.7); EOSINOPHILS % (AUTO) 1.8 %; HGB - HEMOGLOBIN 13.7 g/dL (12.0-16.0); LYMPHOCYTES # (AUTO) 1.3 10^3/uL (1.5-3.5); LYMPHOCYTES % (AUTO) 20.3 %; MEAN CORPUSCULAR HEMOGLOBIN 30.2 pg (27.0-31.0); MEAN CORPUSCULAR HGB CONC 31.2 g/dL (32.0-36.0); MEAN CORPUSCULAR VOLUME 96.9 fL (81.0-99.0); MEAN PLATELET VOLUME 10.1 fL (7.9-10.8); MONOCYTES # (AUTO) 0.4 10^3/uL (0.0-1.0); MONOCYTES % (AUTO) 6.5 %; NEUTROPHILS # (AUTO) 4.6 10^3/uL (1.5-6.6); NEUTROPHILS % (AUTO) 70.3 %; PLT - PLATELET COUNT 236 10^3/uL (130-450); RED BLOOD COUNT 4.53 10^6/uL (4.20-5.40); RED CELL DISTRIBUTION WIDTH 13.2 % (12.0-15.0); WHITE BLOOD COUNT 6.6 x10^3/uL (4.8-10.8)
[2019-10-01 12:14] LABS: ALBUMIN 4.1 g/dL (3.2-5.5); ALBUMIN/GLOBULIN RATIO 1.5 (1.0-2.2); ALKALINE PHOSPHATASE 107 IU/L (42-121); ALT ALANINE AMINOTRANSFERASE 15 IU/L (10-60); AST ASPARTATE AMINOTRANSFERASE 17 IU/L (10-42); BILIRUBIN,TOTAL 0.4 mg/dL (0.2-1.0); BUN - BLOOD UREA NITROGEN 14 mg/dL (6-20); CALCIUM 9.6 mg/dL (8.5-10.3); CARBON DIOXIDE - CO2 29 mmol/L (21-32); CHLORIDE 106 mmol/L (101-111); CHOL/HDL RATIO 2.6 (<4.4); CHOLESTEROL 155 mg/dL; CREATININE 0.6 mg/dL (0.4-1.0); GLUCOSE 106 mg/dL (70-100); HDL CHOLESTEROL 60 mg/dL; LDL CHOLESTEROL,CALCULATED 79 mg/dL; LDL/HDL RATIO 1.3 (<4.4); SODIUM 141 mmol/L (135-145); TOTAL PROTEIN 6.9 g/dL (6.7-8.2); VLDL CHOLESTEROL 16 mg/dL
== END 2019-10-01 23:59 | disposition home or self-care (01) ==
LOC: LAB.WCP 08:00
PROVIDERS: ATTEND Family Medicine
DX: E03.9 Hypothyroidism, unspecified (principal); Z13.220 Encounter for screening for lipoid disorders; I10 Essential (primary) hypertension
CPT/HCPCS: 36415; 80053; 80061; 83721; 84443; 85025

== ENCOUNTER 2021-01-17 09:10 | Outpatient (CLI) | payer MEDICARE ==
[2021-01-17 11:50] LABS: BASOPHILS # (AUTO) 0.1 10^3/uL (0.0-0.1); BASOPHILS % (AUTO) 0.6 %; EOSINOPHILS # (AUTO) 0.2 10^3/uL (0.0-0.7); EOSINOPHILS % (AUTO) 2.9 %; HCT - HEMATOCRIT 45.9 % (37.0-47.0); HGB - HEMOGLOBIN 14.4 g/dL (12.0-16.0); LYMPHOCYTES # (AUTO) 1.6 10^3/uL (1.5-3.5); LYMPHOCYTES % (AUTO) 19.9 %; MEAN CORPUSCULAR HEMOGLOBIN 31.1 pg (27.0-31.0); MEAN CORPUSCULAR HGB CONC 31.4 g/dL (32.0-36.0); MEAN CORPUSCULAR VOLUME 99.1 fL (81.0-99.0); MEAN PLATELET VOLUME 9.9 fL (7.9-10.8); MONOCYTES # (AUTO) 0.6 10^3/uL (0.0-1.0); MONOCYTES % (AUTO) 7.5 %; NEUTROPHILS # (AUTO) 5.4 10^3/uL (1.5-6.6); NEUTROPHILS % (AUTO) 68.6 %; PLT - PLATELET COUNT 276 10^3/uL (130-450); RED BLOOD COUNT 4.63 10^6/uL (4.20-5.40); RED CELL DISTRIBUTION WIDTH 13.2 % (12.0-15.0); WHITE BLOOD COUNT 7.8 x10^3/uL (4.8-10.8)
[2021-01-17 12:21] LABS: ESTIMATED AVERAGE GLUCOSE 120 mg/dL (70-100); HEMOGLOBIN A1c% 5.8 % (4.27-6.07)
[2021-01-17 12:29] LABS: ALBUMIN 4.2 g/dL (3.2-5.5); ALBUMIN/GLOBULIN RATIO 1.4 (1.0-2.2); ALKALINE PHOSPHATASE 137 IU/L (42-121); ALT ALANINE AMINOTRANSFERASE 17 IU/L (10-60); AST ASPARTATE AMINOTRANSFERASE 17 IU/L (10-42); BILIRUBIN,TOTAL 0.6 mg/dL (0.2-1.0); BUN - BLOOD UREA NITROGEN 17 mg/dL (6-20); CALCIUM 10.2 mg/dL (8.5-10.3); CARBON DIOXIDE - CO2 30 mmol/L (21-32); CHLORIDE 99 mmol/L (101-111); CHOL/HDL RATIO 2.8 (<4.4); CHOLESTEROL 165 mg/dL; CREATININE 0.7 mg/dL (0.4-1.0); GFR - MDRD 81 (>89); GLUCOSE 125 mg/dL (70-100); HDL CHOLESTEROL 58 mg/dL; LDL CHOLESTEROL,CALCULATED 88 mg/dL; LDL/HDL RATIO 1.5 (<4.4); POTASSIUM 5.2 mmol/L (3.5-5.0); SODIUM 138 mmol/L (135-145); TOTAL PROTEIN 7.3 g/dL (6.7-8.2); TRIGLYCERIDES 96 mg/dL; VLDL CHOLESTEROL 19 mg/dL
[2021-01-17 12:33] LABS: THYROID STIMULATING HORMONE 0.71 uIU/mL (0.34-5.60)
[2021-01-17 12:45] LABS: CREATININE,URINE 197.2 mg/dL; MICROALBUM/CREATININE RATIO,UR 17.7 ug/mg (<30.0); MICROALBUMIN,URINE 3.5 mg/dL (0-300.0)
== END 2021-01-17 23:59 | disposition home or self-care (01) ==
LOC: LAB.WCP 09:10
PROVIDERS: ATTEND Family Medicine
DX: I10 Essential (primary) hypertension (principal); Z13.220 Encounter for screening for lipoid disorders; R73.01 Impaired fasting glucose; E03.9 Hypothyroidism, unspecified
CPT/HCPCS: 36415; 80053; 80061; 82043; 82570; 83036; 83721; 84443; 85025

== ENCOUNTER 2021-01-24 11:16 | Outpatient (CLI) | payer MEDICARE ==
[2021-01-24 18:01] LABS: CALCIUM 10.7 mg/dL (8.5-10.3); CREATININE 0.6 mg/dL (0.4-1.0); POTASSIUM 4.9 mmol/L (3.5-5.0)
== END 2021-01-24 23:59 | disposition home or self-care (01) ==
LOC: LAB.WCP 11:16
PROVIDERS: ATTEND Family Medicine
DX: E78.5 Hyperlipidemia, unspecified (principal); R74.8 Abnormal levels of other serum enzymes
CPT/HCPCS: 36415; 80048; 84075; 84080

== ENCOUNTER 2022-02-19 13:52 | Outpatient (CLI) | payer MEDICARE ==
--- NOTE | 2022-02-21 16:26 | Mammography Report ---
BILATERAL DIGITAL SCREENING MAMMOGRAM 3D/2D: 02/19/2022 CLINICAL: Routine screening. Comparison is made to exams dated: 09/05/2017 mammogram, 08/30/2016 mammogram, 08/25/2015 mammogram, mammogram, 09/11/2012 mammogram, and 08/07/2011 mammogram - [facility]. There are scattered areas of fibroglandular density in both breasts (category b / 25%-50% glandular t issue). No significant masses, calcifications, or other findings are seen in either breast. There has been no significant interval change. IMPRESSION: NEGATIVE There is no mammographic evidence of malignancy. A 1 year screening mammogram is recommended. Based on the Tyrer Cuzick model (a risk assessment model) the patients lifetime risk is 0.7% and her 10 year risk is 0.0%. According to the ACR, ACS, and NCCN guidelines, an annual breast MRI exam humza g with mammogram is recommended if the patients lifetime risk is 20% or greater. This exam was interpreted at Station ID: [id number]. NOTE: For mammograms, a report in lay terms will be sent to the patient. Approximately 15% of breast malignancies will not be visualized mammographically. In the management of a palpable breast mass, a negative mammogram must not discourage biopsy of a clinically suspicious lesion. Electronically Signed By: Laila castro/juliana:02/20/2022 15:09:09 ACR BI-RADS Category 1: Negative 3341F PARENCHYMAL PATTERN: (A) - The breast(s) demonstrate(s) scattered fibroglandular densities. BI-RADS CATEGORY: (1) - 1 RECOMMENDATION: (ANNUAL) - Recommend routine annual screening mammography. [id number] 1 year screening LATERALITY: (B)
== END 2022-02-19 13:53 | disposition home or self-care (01) ==
LOC: DI.N 13:52
DX: Z12.31 Encounter for screening mammogram for malignant neoplasm of breast (principal)

== ENCOUNTER 2022-03-22 07:15 | Outpatient (CLI) | payer MEDICARE ==
[2022-03-22 12:20] LABS: BASOPHILS # (AUTO) 0.1 10^3/uL (0.0-0.1); BASOPHILS % (AUTO) 0.7 %; EOSINOPHILS # (AUTO) 0.2 10^3/uL (0.0-0.7); EOSINOPHILS % (AUTO) 2.6 %; HCT - HEMATOCRIT 43.9 % (37.0-47.0); HGB - HEMOGLOBIN 13.7 g/dL (12.0-16.0); LYMPHOCYTES # (AUTO) 1.7 10^3/uL (1.5-3.5); LYMPHOCYTES % (AUTO) 22.2 %; MEAN CORPUSCULAR HEMOGLOBIN 31.1 pg (27.0-31.0); MEAN CORPUSCULAR HGB CONC 31.2 g/dL (32.0-36.0); MEAN CORPUSCULAR VOLUME 99.5 fL (81.0-99.0); MEAN PLATELET VOLUME 10.3 fL (7.9-10.8); MONOCYTES # (AUTO) 0.6 10^3/uL (0.0-1.0); MONOCYTES % (AUTO) 7.5 %; NEUTROPHILS % (AUTO) 66.7 %; PLT - PLATELET COUNT 257 10^3/uL (130-450); RED BLOOD COUNT 4.41 10^6/uL (4.20-5.40); RED CELL DISTRIBUTION WIDTH 13.5 % (12.0-15.0); WHITE BLOOD COUNT 7.4 x10^3/uL (4.8-10.8)
[2022-03-22 12:39] LABS: ALBUMIN 3.9 g/dL (3.2-5.5); ALBUMIN/GLOBULIN RATIO 1.4 (1.0-2.2); ALKALINE PHOSPHATASE 122 IU/L (42-121); ALT ALANINE AMINOTRANSFERASE 16 IU/L (10-60); AST ASPARTATE AMINOTRANSFERASE 18 IU/L (10-42); BILIRUBIN,TOTAL 0.4 mg/dL (0.2-1.0); BUN - BLOOD UREA NITROGEN 16 mg/dL (6-20); CARBON DIOXIDE - CO2 33 mmol/L (21-32); CHLORIDE 100 mmol/L (101-111); CHOL/HDL RATIO 2.5 (<4.4); CHOLESTEROL 150 mg/dL; CREATININE 0.7 mg/dL (0.4-1.0); GFR - MDRD 80 (>89); GLUCOSE 108 mg/dL (70-100); HDL CHOLESTEROL 60 mg/dL; LDL CHOLESTEROL,CALCULATED 79 mg/dL; LDL/HDL RATIO 1.3 (<4.4); POTASSIUM 4.4 mmol/L (3.5-5.0); SODIUM 140 mmol/L (135-145); TOTAL PROTEIN 6.6 g/dL (6.7-8.2); TRIGLYCERIDES 57 mg/dL; VLDL CHOLESTEROL 11 mg/dL
[2022-03-22 12:52] LABS: THYROID STIMULATING HORMONE 1.18 uIU/mL (0.34-5.60)
[2022-03-22 13:41] LABS: ESTIMATED AVERAGE GLUCOSE 117 mg/dL (70-100); HEMOGLOBIN A1c% 5.7 % (4.27-6.07)
== END 2022-03-22 07:16 | disposition home or self-care (01) ==
LOC: LAB.N 07:15
PROVIDERS: ATTEND Physician Assistant
DX: E87.5 Hyperkalemia (principal); E78.6 Lipoprotein deficiency; R73.01 Impaired fasting glucose; E03.9 Hypothyroidism, unspecified; I10 Essential (primary) hypertension
CPT/HCPCS: 36415; 80053; 80061; 83036; 83721; 84443; 85025

== ENCOUNTER 2023-02-11 10:16 | Outpatient (CLI) | payer MEDICARE ==
--- NOTE | 2023-02-11 16:20 | XRAY Report ---
PROCEDURE: Shoulder 2 View LT INDICATIONS: SHOULDER PAIN,LEFT TECHNIQUE: 3 views of the shoulder were acquired. COMPARISON: None. FINDINGS: Bones: No fractures or dislocations. No suspicious bony lesions. Visualized ribs appear intact. Moderate acromioclavicular and glenohumeral degenerative narrowing. No erosions. Soft tissues: No suspicious soft tissue calcifications. The visualized lungs are within normal limi ts. IMPRESSION: Acromioclavicular and glenohumeral arthritic change. Reviewed by: Polina Garza MD on 02/11/2023 4:19 PM PDT Approved by: Polina Garza MD on 02/11/2023 4:19 PM PDT Station ID: [id number]
== END 2023-02-11 10:17 | disposition home or self-care (01) ==
LOC: DI 10:16
PROVIDERS: ATTEND Physician Assistant
DX: M19.012 Primary osteoarthritis, left shoulder (principal)

== ENCOUNTER 2023-03-15 07:28 | Outpatient (CLI) | payer MEDICARE ==
[2023-03-15 12:25] LABS: BASOPHILS # (AUTO) 0.1 10^3/uL (0.0-0.1); BASOPHILS % (AUTO) 0.6 %; EOSINOPHILS # (AUTO) 0.2 10^3/uL (0.0-0.7); EOSINOPHILS % (AUTO) 2.6 %; HGB - HEMOGLOBIN 14.3 g/dL (12.0-16.0); LYMPHOCYTES # (AUTO) 1.6 10^3/uL (1.5-3.5); LYMPHOCYTES % (AUTO) 20.1 %; MEAN CORPUSCULAR HGB CONC 31.1 g/dL (32.0-36.0); MEAN CORPUSCULAR VOLUME 99.6 fL (81.0-99.0); MEAN PLATELET VOLUME 10.4 fL (7.9-10.8); MONOCYTES # (AUTO) 0.6 10^3/uL (0.0-1.0); MONOCYTES % (AUTO) 7.6 %; NEUTROPHILS # (AUTO) 5.3 10^3/uL (1.5-6.6); NEUTROPHILS % (AUTO) 68.5 %; PLT - PLATELET COUNT 284 10^3/uL (130-450); RED BLOOD COUNT 4.62 10^6/uL (4.20-5.40); RED CELL DISTRIBUTION WIDTH 13.5 % (12.0-15.0); WHITE BLOOD COUNT 7.7 x10^3/uL (4.8-10.8)
[2023-03-15 12:48] LABS: ALBUMIN 4.2 g/dL (3.2-5.5); ALBUMIN/GLOBULIN RATIO 1.7 (1.0-2.2); ALKALINE PHOSPHATASE 143 IU/L (42-121); ALT ALANINE AMINOTRANSFERASE 10 IU/L (10-60); AST ASPARTATE AMINOTRANSFERASE 14 IU/L (10-42); BILIRUBIN,TOTAL 0.4 mg/dL (0.2-1.0); BUN - BLOOD UREA NITROGEN 17 mg/dL (6-20); CALCIUM 11.2 mg/dL (8.5-10.3); CARBON DIOXIDE - CO2 32 mmol/L (21-32); CHLORIDE 102 mmol/L (101-111); CHOL/HDL RATIO 2.6 (<4.4); CHOLESTEROL 146 mg/dL; CREATININE 0.7 mg/dL (0.6-1.3); GFR - MDRD 80 (>89); GLUCOSE 131 mg/dL (74-104); HDL CHOLESTEROL 57 mg/dL; LDL CHOLESTEROL,CALCULATED 69 mg/dL; LDL/HDL RATIO 1.2 (<4.4); POTASSIUM 4.4 mmol/L (3.5-4.5); SODIUM 140 mmol/L (135-145); TOTAL PROTEIN 6.7 g/dL (6.4-8.9); TRIGLYCERIDES 101 mg/dL (48-352); VLDL CHOLESTEROL 20 mg/dL
[2023-03-15 13:06] LABS: THYROID STIMULATING HORMONE 2.01 uIU/mL (0.34-5.60)
[2023-03-15 13:23] LABS: ESTIMATED AVERAGE GLUCOSE 117 mg/dL (70-100); HEMOGLOBIN A1c% 5.7 % (4.27-6.07)
== END 2023-03-15 07:29 | disposition home or self-care (01) ==
LOC: LAB.N 07:28
PROVIDERS: ATTEND Physician Assistant
DX: E87.5 Hyperkalemia (principal); E78.6 Lipoprotein deficiency; R73.01 Impaired fasting glucose; E03.9 Hypothyroidism, unspecified; I10 Essential (primary) hypertension
CPT/HCPCS: 36415; 80053; 80061; 83036; 83721; 84443; 85025

== ENCOUNTER 2023-05-14 11:02 | Outpatient (CLI) | payer MEDICARE ==
--- NOTE | 2023-05-16 15:58 | Mammography Report ---
BILATERAL DIGITAL SCREENING MAMMOGRAM 3D/2D: 05/14/2023 CLINICAL: Routine screening. Comparison is made to exams dated: 02/19/2022 mammogram, 09/05/2017 mammogram, 08/30/2016 mammogram, 03/2016 mammogram, 09/30/2013 mammogram, and 09/11/2012 mammogram - [facility]. There are scattered areas of fibroglandular density in both breasts (category b / 25%-50% glandular t issue). No significant masses, calcifications, or other findings are seen in either breast. There has been no significant interval change. IMPRESSION: NEGATIVE There is no mammographic evidence of malignancy. A 1 year screening mammogram is recommended. Based on the Tyrer Cuzick model (a risk assessment model) the patient's lifetime risk is 0.5% and her 10 year risk is 0.0%. According to the ACR, ACS, and NCCN guidelines, an annual breast MRI exam humza g with mammogram is recommended if the patients lifetime risk is 20% or greater. This exam was interpreted at Station ID: [id number]. NOTE: For mammograms, a report in lay terms will be sent to the patient. Approximately 15% of breast malignancies will not be visualized mammographically. In the management of a palpable breast mass, a negative mammogram must not discourage biopsy of a clinically suspicious lesion. Electronically Signed By: Destiny Card M.D., PH.D [email or web address]:05/15/2023 16:58:05 letter sent: No_Letter ACR BI-RADS Category 1: Negative 3341F PARENCHYMAL PATTERN: (A) - The breast(s) demonstrate(s) scattered fibroglandular densities. BI-RADS CATEGORY: (1) - 1 Mammogram [id number] 1 year screening LATERALITY: (B)
== END 2023-05-14 11:03 | disposition home or self-care (01) ==
LOC: DI.N 11:02
DX: Z12.31 Encounter for screening mammogram for malignant neoplasm of breast (principal); R92.323 Mammographic fibroglandular density, bilateral breasts